=== PATIENT | female | born 2000 | race Hispanic/Latino ===

== ENCOUNTER → 2025-02-03 | Day surgery (SDC) | payer BC ==
[~2025-02-03] MED LIST: ACETAMINOPHEN 1000 MG/100 ML 100 ML IV ONE; AMLODIPINE BESYL5 MG PO; CYMBALTA30 MG PO; DEXAMETHASONE SOD PHOS INJ 4 MG/ML SDV ONE; FAMOTIDINE 20 MG/2 ML VIAL IV ONE; FENTANYL CITRATE/PF 100MCG/2 ML INJ ONE; LIDOCAINE HCL 2% LOCAL INJ 5 ML SDV VIAL INJ ONE; MIDAZOLAM HCL 2 MG/2 ML VIAL ONE; MYDAYIS ER 3737.5 MG PO; ONDANSETRON HCL INJ 2MG/ML 2ML 2 MG/ML VIAL ONE; PROPOFOL IV EMULSION 10 MG/ML 20 ML VIAL ONE; VITAMIN D31250 MCG PO
[2025-02-03] MEDS: CLINDAMYCIN PHOS 900MG/ 50ML 50 ML IV ONE (13:32)
[2025-02-03] MEDS: LACTATED RINGER'S 1,000 ML ONE (13:32)
[2025-02-03 14:45] VITALS: TEMP 97.1
[2025-02-03 15:35] VITALS: BP 100/65; PULSE 61; RESP 16; O2SAT 97
== END | disposition home or self-care (01) ==
LOC: OR 10:37
PROVIDERS: ATTEND Podiatrist Foot & Ankle Surgery
DX: S82.61XA Displaced fracture of lateral malleolus of right fibula, initial encounter for closed fracture (principal); M77.51 Other enthesopathy of right foot and ankle; M25.871 Other specified joint disorders, right ankle and foot; X58.XXXA Exposure to other specified factors, initial encounter; F90.9 Attention-deficit hyperactivity disorder, unspecified type; Z79.899 Other long term (current) drug therapy; Z88.0 Allergy status to penicillin
CPT/HCPCS: 27792; 29897; 76000; 81025; C1713 ×3; C1762; J0131; J1100; J1308; J2003; J2250; J2405; J2704; J3010; J7121